=== PATIENT | female | born 1985 | race Caucasian/White ===

== ENCOUNTER 2018-04-04 09:58 | Emergency (ER) | payer OTHER ==
[~2018-04-04] VITALS: Ht 157.5 cm; Wt 62.0 kg
[2018-04-04 10:36] LABS: HEMOGLOBIN 14.4 G/DL (11.9-15.5); MCH 32.1 PG (29.0-34.0); MCV 89.1 FL (83-99); PLATELET COUNT 151 K/uL (156-360); RBC DIS.WIDTH-SD 42.2 % (39-53); RED BLOOD COUNT 4.49 M/uL (3.80-5.20); WHITE BLOOD COUNT 3.8 K/uL (4.1-10.2)
[2018-04-04 10:43] LABS: APPEARANCE SL.HAZY ((CLEAR)); BILIRUBIN NEGATIVE; BLOOD NEGATIVE; COLOR AMBER ((YELLOW)); GLUCOSE (STRIP) NEGATIVE; KETONES NEGATIVE; LEUKOCYTES NEGATIVE; NITRITE NEGATIVE; PROTEIN (STRIP) 30; SPECIFIC GRAVITY 1.028 (1.000-1.030); UROBILINOGEN 0.2 MG/DL (0.2-1.0)
[2018-04-04 10:46] LABS: CHLORIDE 108 mEq/L (99-109); POTASSIUM 4.6 mEq/L (3.7-5.4); SODIUM 139 mEq/L (136-147)
[2018-04-04 10:47] LABS: GLUCOSE 85 mg/dL (70-99)
[2018-04-04 10:51] LABS: CREATININE 0.7 mg/dL (0.6-1.3); GFR ESTIMATE (CALCULATED) > 59 mL/min/
[2018-04-04 10:52] LABS: UREA NITROGEN (BUN) 9 mg/dL (9-23)
[2018-04-04 10:59] LABS: QUANTITATIVE HCG < 4.0 MIU/ML
[2018-04-04 11:11] LABS: RED BLOOD CELLS NONE SEEN /HPF (0-5); WHITE BLOOD CELLS NONE SEEN /HPF (0-5)
[2018-04-04 11:12] LABS: BACTERIA 1+ /HPF; EPITHELIAL CELLS 2+ /HPF; MUCUS 3+ /LPF
[2018-04-04 11:47] LABS: ABS NEUTROPHIL COUNT 2.3; ATYPICAL LYMPHOCYTE 3.5 %; BAND NEUTROPHILS 15.7 % (0-8.0); BASOPHILS 1.7 %; EOSINOPHIL ABS CT 0; EOSINOPHILS 0.9 % (0-5.0); LYMPHOCYTES 27.8 % (15.0-45.0); MONOCYTES 4.3 % (0-9.0); SEG.NEUTROPHILS 46.1 % (46.0-76.0)
[2018-04-04 12:30] VITALS: BP 106/75
[2018-04-04] MEDS ORDERED: ZOFRAN4 MG PO (12:34)
[2018-04-04] MEDS ORDERED: IMODIUM A-D2 M2 PO (12:34)
[2018-04-04] MEDS ORDERED: MOTRIN800 MG PO (12:34)
== END 2018-04-04 13:02 | disposition home or self-care (01) ==
LOC: EME 09:58
PROVIDERS: Emergency Medicine
DX: R11.2 Nausea with vomiting, unspecified (principal); R19.7 Diarrhea, unspecified; M54.5 Low back pain; R10.9 Unspecified abdominal pain; R50.9 Fever, unspecified
CPT/HCPCS: 80048; 81003; 84702; 85025; 99281; 99285; J1885; J2405; J7030